=== PATIENT | male | born 1965 | race Caucasian/White ===

== ENCOUNTER 2023-11-14 16:35 | Outpatient (CLI) | payer OTHER, SELFPAY | END 2023-11-14 16:36 | disposition home or self-care (01) | LOC: AMB 11-16 12:44 | PROVIDERS: Visit Provider Student in an Organized Health Care Education/Training Program | DX: R06.09 Other forms of dyspnea (principal) | CPT/HCPCS: A0425; A0427 ==

== ENCOUNTER 2023-11-14 16:59 | Emergency (ER) | payer OTHER, SELFPAY ==
[2023-11-14] VITALS (34 sets, daily range): BP systolic 107–137; BP diastolic 71–87; PULSE 104–119; RESP 12–29; TEMP 37.1; O2SAT 92–97; BMI 28.9
--- NOTE | 2023-11-14 17:33 | ED_ITS ---
HPI - General Adult General Chief complaint: Cough Stated complaint: fever Time Seen by Provider: 11/14/23 17:00 History of Present Illness HPI narrative: Patient reports generalized body aches, cough and congestion for a couple of weeks. Went into urgent care today and also endorses right chest pain that is worse with coughing. 58-year-old man presenting to the emergency department after being initially evaluated in urgent care who called for 2nd opinion on imaging and care plan. Recommendations were to be seen in the emergency department for further evaluation at that point. He has had a couple of weeks of coughing congestion generalized achy. Is experiencing night sweats. Sounds like it might be experiencing increased orthopnea. Having some right-sided chest pain, pleuritic. He does smoke. Denies drinking alcohol just admits to excessive soda ingestion. Works hauling tires. No particular sick contacts. Figures he is due for a physical but unsure where he receives his regular primary care. Somewhere in [place]. Later review of records notes a history of pulmonary embolus and anticoagulation with Coumadin approximately 10 years ago Related Data Home Medications Medication Instructions Recorded Confirmed No Known Home Medications 11/14/23 11/14/23 Allergies Allergy/AdvReac Type Severity Reaction Status Date / Time No Known Drug Allergies Allergy Verified 11/14/23 18:08 Review of Systems Status of ROS: Reports: 6 or more systems reviewed and unremarkable except as noted in History and below Exam Narrative: Exam Narrative: Pleasant. Of good energy. Skin is warm and dry. He has strong rough hands. Oropharynx is a little sticky. Cranial nerves 2-12 look to be intact. Lungs with diminished breath sounds in the right upper chest. No supraclavicular crepitus. No cervical lymphadenopathy. Does cough once during effort here. Heart is tachycardic in a regular rhythm. Abdomen is soft and nontender. Extremities well perfused. Left lower leg with 1+ pitting edema. Less so on the right. Negative Homans. Const: Vital Signs, click to edit/add: Vital Signs - 24 hr 11/14/23 17:09 11/14/23 17:11 11/14/23 17:15 Temperature 98.8 F Pulse Rate 117 H 115 H Pulse Rate [Pulse Oximeter] 116 H Respiratory Rate 24 Blood Pressure Blood Pressure [Ri ght Upper Arm] 137/87 Pulse Oximetry 93 93 92 Oxygen Delivery Me thod Room Air 02/10/24 17:20 11/14/23 17:30 11/14/23 17:31 Temperature Pulse Rate 114 H 116 H Pulse Rate [Pulse Oximeter] Respiratory Rate 16 Blood Pressure 126/77 Blood Pressure [Ri ght Upper Arm] Pulse Oximetry 94 93 92 Oxygen Delivery Me thod Room Air 11/14/23 17:34 11/14/23 17:40 11/14/23 17:45 Temperature Pulse Rate 114 H Pulse Rate [Pulse Oximeter] Respiratory Rate Blood Pressure Blood Pressure [Ri ght Upper Arm] Pulse Oximetry 92 93 94 Oxygen Delivery Me thod 11/14/23 17:50 11/14/23 18:05 11/14/23 18:07 Temperature Pulse Rate 119 H 114 H Pulse Rate [Pulse Oximeter] Respiratory Rate Blood Pressure 127/78 Blood Pressure [Ri ght Upper Arm] Pulse Oximetry 94 93 93 Oxygen Delivery Me thod 11/14/23 18:10 11/14/23 18:15 11/14/23 18:21 Temperature Pulse Rate 114 H Pulse Rate [Pulse Oximeter] Respiratory Rate Blood Pressure Blood Pressure [Ri ght Upper Arm] Pulse Oximetry 92 93 94 Oxygen Delivery Me thod 11/14/23 18:30 11/14/23 18:40 11/14/23 18:45 Temperature Pulse Rate 113 H 114 H Pulse Rate [Pulse Oximeter] Respiratory Rate Blood Pressure Blood Pressure [Ri ght Upper Arm] Pulse Oximetry 93 93 94 Oxygen Delivery Me thod 11/14/23 18:50 11/14/23 19:00 11/14/23 19:02 Temperature Pulse Rate 112 H 114 H Pulse Rate [Pulse Oximeter] Respiratory Rate Blood Pressure 110/71 Blood Pressure [Ri ght Upper Arm] Pulse Oximetry 93 93 93 Oxygen Delivery Me thod 11/14/23 19:10 11/14/23 19:20 11/14/23 20:41 Temperature Pulse Rate Pulse Rate [Pulse Oximeter] Respiratory Rate Blood Pressure Blood Pressure [Ri ght Upper Arm] Pulse Oximetry 93 93 93 Oxygen Delivery Me thod Documenting provider has reviewed patient's vital signs: yes Course Vital Signs Vital signs: Initial Vital Signs Respiratory Effort Normal 11/14/23 17:08 Respiratory Depth Normal 11/14/23 17:08 Respiratory Pattern Normal 11/14/23 17:08 Vital Signs Temperature 98.8 F 11/14/23 17:09 Pulse Rate 116 H 11/14/23 17:09 Respiratory Rate 24 11/14/23 17:09 Blood Pressure 137/87 11/14/23 17:09 Pulse Oximetry 93 11/14/23 17:09 Oxygen Delivery Method Room Air 11/14/23 17:09 Temperature 98.8 F 11/14/23 17:09 Pulse Rate 114 H 11/14/23 19:02 Respiratory Rate 16 11/14/23 17:31 Blood Pressure 110/71 11/14/23 19:02 Pulse Oximetry 93 11/14/23 20:41 Oxygen Delivery Method Room Air 11/14/23 17:31 Medications Administered Medications: Discontinued Medications Generic Name Dose Route Start Last Admin Trade Name Freq PRN Reason Stop Dose Admin Sodium Chloride 1,000 mls @ 1,000 mls/hr 11/14/23 19:06 11/14/23 20:44 0.9 % Sodium Chloride 1000 Ml IV 11/14/23 20:05 Infused .Q1H ONE Infusion Piperacillin Sod/Tazobactam 100 mls @ 200 mls/hr 11/14/23 19:06 11/14/23 20:08 Sod 4.5 gm/ Sodium Chloride IVPB 11/14/23 19:07 Infused ONCE ONE Infusion Medical Decision Making MDM Narrative Medical decision making narrative: Per call by urgent care am reviewing initial two-view chest. Does have waited out right side chest with what looks to be some marked atelectatic changes on the right. Almost seems as though without lung markings in the apex. Looks to be effusion but not layering out the lower chest. White count has been collected not resulted from urgent care is little over 30,000. Mildly hypoxic Would presume pneumonia at this point with associated effusion but I think given degree of effusion and history of smoking would be a good idea to CTA chest. Will collect other labs. Antibiotics. Would anticipate admission. CT chest reviewed by me shows multiloculated nature to this effusion on the right. Radiology over-read as below Final Report: INDICATION: Right-sided pleural effusion, leukocytosis. TECHNIQUE: CT chest was acquired with 75 cc Isovue 370 IV contrast. COMPARISON: Radiograph, November 14, 2023. FINDINGS: Lungs and pleura: Large multiloculated right pleural effusion with compressive atelectasis. Some pleural hyperenhancement. No left lung pleural effusion or consolidation. No pneumothoraces. Heart and vasculature: Heart size is normal. Thoracic aorta and pulmonary artery are normal in caliber. Lymph nodes/mediastinum: Focal patulous fluid-filled proximal esophagus. Multiple mildly enlarged mediastinal lymph nodes. Chest wall: No masses. Upper abdomen: Normal. Bones: Unremarkable for age. IMPRESSION: Large multiloculated right pleural effusion with compressive atelectasis. Some pleural enhancement which likely suggests early empyema formation. Multiple mildly enlarged mediastinal lymph nodes, possibly reactive. Focal patulous fluid-filled proximal esophagus, possibly diverticulum. This could predispose the patient to aspiration. Further labs with mildly elevated bilirubin unclear etiology. Mildly elevated PT and PTT. Elevated bili also expressed in the urine. Unable to do testing for strep pneumo or Legionella, out of reagent, though this does not seem like a typical pneumonia for this. Anticipating admission to our facility spoke with hospitalist but also with General surgery. Concern for more involved drainage of this multiloculated effusion and potential need to address possible etiology from aspiration event. I have called to [facility] ultimately speaking with pulmonology and anticipating conversation with hospitalist at [facility] for admission and next step in cares. Meanwhile have given a dose of Zosyn. No MRSA history noted. Remains mildly hypoxic and mildly tachycardic. Otherwise WNL. Blood cultures were obtained on initial lab draws. 2041 -- spoke with hospitalist at [facility] Dr. Jesus who is accepting. Pending bed confirmation and transport. Lab Data Lab results reviewed: Yes I reviewed the patient's lab results Labs: Lab Results 11/14/23 11/14/23 11/14/23 Range/Units 17:40 17:45 18:00 INR 1.30 H (0.91-1.10) APTT 42 H (23-33) Seconds Sodium 130 L (135-149) mmol/L Potassium 3.8 (3.6-5.1) mmol/L Chloride 98 (96-114) mmol/L Carbon Dioxide 21 (20-32) mmol/L Anion Gap 11 (7-15) mEq/L BUN 17 (7-30) mg/dL Creatinine 1.1 (0.5-1.5) mg/dL Estimated Creat Clear 84.07 Estimated GFR 77 ml/min Glucose 156 H (60-115) mg/dL Lactate 1.3 (0.5-1.9) mmol/L Calcium 8.5 (8.4-10.6) mg/dL Total Bilirubin 2.1 H (0.1-1.5) mg/dL Direct Bilirubin 1.0 H (0.0-0.5) mg/dL AST 33 (12-35) U/L ALT 31 (4-50) U/L Alkaline Phosphatase 123 (40-150) U/L C-Reactive Protein 25.9 H (0.5-1.0) mg/dL NT-Pro-B Natriuret Pep 297 pg/mL Total Protein 7.4 (6.0-8.3) g/dL Albumin 3.5 (3.3-5.0) g/dL Urine Color [place] A (Yellow) Urine Appearance Slightly Cloudy A (Clear) Urine pH 6.0 (5.0-8.5) Ur Specific [place] 1.025 (1.000-1.030) Urine Protein 2+ A (Negative) Urine Glucose (UA) Trace A (Negative) Urine Ketones Trace A (Negative) Urine Blood Trace-intact A (Negative) Urine Nitrite Positive A (Negative) Urine Bilirubin 2+ A (Negative) Urine Urobilinogen >=8.0 A (0.2-1.0) Ur Leukocyte Esterase Negative (Negative) Urine RBC 0-2 (0-2) Urine WBC 0-2 (0-5) Ur Squamous Epith Cells None (None-Few) Amorphous Sediment Few A (None) Urine Bacteria Few A (None) Urine L. pneumophilia Ag Cancelled Urine Strep pneumoniae Ag Cancelled Ethyl Alcohol < 0.01 L (0.01-0.03) % SARS-CoV-2 (PCR) Negative SARS-CoV-2 (Negative) Influenza Type A (PCR) Negative PCR FLU A (Negative) Influenza Type B (PCR) Negative PCR FLU B (Negative) RSV (PCR) Negative PCR RSV (Negative) Lab Acknowledgement 11/14/23 Range/Units 19:01 INR (0.91-1.10) APTT (23-33) Seconds Sodium (135-149) mmol/L Potassium (3.6-5.1) mmol/L Chloride (96-114) mmol/L Carbon Dioxide (20-32) mmol/L Anion Gap (7-15) mEq/L BUN (7-30) mg/dL Creatinine (0.5-1.5) mg/dL Estimated Creat Clear Estimated GFR ml/min Glucose (60-115) mg/dL Lactate (0.5-1.9) mmol/L Calcium (8.4-10.6) mg/dL Total Bilirubin (0.1-1.5) mg/dL Direct Bilirubin (0.0-0.5) mg/dL AST (12-35) U/L ALT (4-50) U/L Alkaline Phosphatase (40-150) U/L C-Reactive Protein (0.5-1.0) mg/dL NT-Pro-B Natriuret Pep pg/mL Total Protein (6.0-8.3) g/dL Albumin (3.3-5.0) g/dL Urine Color (Yellow) Urine Appearance (Clear) Urine pH (5.0-8.5) Ur Specific [place] (1.000-1.030) Urine Protein (Negative) Urine Glucose (UA) (Negative) Urine Ketones (Negative) Urine Blood (Negative) Urine Nitrite (Negative) Urine Bilirubin (Negative) Urine Urobilinogen (0.2-1.0) Ur Leukocyte Esterase (Negative) Urine RBC (0-2) Urine WBC (0-5) Ur Squamous Epith Cells (None-Few) Amorphous Sediment (None) Urine Bacteria (None) Urine L. pneumophilia Ag Urine Strep pneumoniae Ag Ethyl Alcohol (0.01-0.03) % SARS-CoV-2 (PCR) (Negative) Influenza Type A (PCR) (Negative) Influenza Type B (PCR) (Negative) RSV (PCR) (Negative) Lab Acknowledgement Test Added ECG Data Attestation: I personally reviewed and interpreted this ECG as follows: (Sinus tachycardia 116) Discharge Plan Discharge Clinical Impression: Pleural effusion, Pneumonia Patient Disposition: Xfer Other Discharge Location: [facility] Condition: Stable Prescriptions: No Action No Known Home Medications Stand Alone Forms: MyHealth Info Instructions
--- NOTE | 2023-11-14 17:35 | CRLHL7_ITS ---
For Patients: As a result of the Century Cures Act, medical imaging exams and procedure reports are released immediately into your electronic medical record. You may view this report before your referring provider. If you have questions, please contact your health care provider. INDICATION: Right-sided pleural effusion, leukocytosis. TECHNIQUE: CT chest was acquired with 75 cc Isovue 370 IV contrast. COMPARISON: Radiograph, November 14, 2023. FINDINGS: Lungs and pleura: Large multiloculated right pleural effusion with compressive atelectasis. Some pleural hyperenhancement. No left lung pleural effusion or consolidation. No pneumothoraces. Heart and vasculature: Heart size is normal. Thoracic aorta and pulmonary artery are normal in caliber. Lymph nodes/mediastinum: Focal patulous fluid-filled proximal esophagus. Multiple mildly enlarged mediastinal lymph nodes. Chest wall: No masses. Upper abdomen: Normal. Bones: Unremarkable for age. IMPRESSION: Large multiloculated right pleural effusion with compressive atelectasis. Some pleural enhancement which likely suggests early empyema formation. Multiple mildly enlarged mediastinal lymph nodes, possibly reactive. Focal patulous fluid-filled proximal esophagus, possibly diverticulum. This could predispose the patient to aspiration. Please note that all CT scans at this facility use dose modulation, iterative reconstruction, and/or weight-based dosing when appropriate to reduce radiation dose to as low as reasonably achievable. Dictated by Ishaan Goldman MD @ 11/14/2023 6:54:17 PM (Electronically Signed)
[2023-11-14 17:46] LABS: Lactate* 1.3 mmol/L (0.5-1.9)
[2023-11-14 18:02] LABS: Chloride* 98 mmol/L (96-114); Potassium* 3.8 mmol/L (3.6-5.1); Sodium* 130 mmol/L (135-149)
[2023-11-14 18:03] LABS: Albumin* 3.5 g/dL (3.3-5.0)
[2023-11-14 18:04] LABS: Creatinine* 1.1 mg/dL (0.5-1.5); Est. Creatinine Clearance* 84.07; Estimated Glomerular Filt Rate 77 ml/min
[2023-11-14 18:05] LABS: Anion Gap 11 mEq/L (7-15); Blood Urea Nitrogen* 17 mg/dL (7-30); Carbon Dioxide* 21 mmol/L (20-32); Glucose* 156 mg/dL (60-115)
[2023-11-14 18:06] LABS: Alanine Aminotransferase* 31 U/L (4-50); Alkaline Phosphatase* 123 U/L (40-150); Aspartate Amino Transferase* 33 U/L (12-35); Bilirubin Total* 2.1 mg/dL (0.1-1.5); Calcium* 8.5 mg/dL (8.4-10.6); Total Protein* 7.4 g/dL (6.0-8.3)
[2023-11-14 18:13] LABS: Appearance Urine Slightly Cloudy (Clear); Bilirubin Urine 2+ (Negative); Blood Urine Trace-intact (Negative); Color Urine Orange (Yellow); Glucose Urine Trace (Negative); Ketones Urine Trace (Negative); Leukocyte Esterase Urine Negative (Negative); Nitrite Urine Positive (Negative); Protein Urine 2+ (Negative); Specific Gravity Urine 1.025 (1.000-1.030); Urobilinogen Urine >=8.0 (0.2-1.0)
[2023-11-14 18:17] LABS: Ethanol* < 0.01 % (0.01-0.03)
[2023-11-14 18:18] LABS: NT Pro B Type NatriureticPept* 297 pg/mL
[2023-11-14 18:19] LABS: C Reactive Protein* 25.9 mg/dL (0.5-1.0)
[2023-11-14 18:25] LABS: Bacteria Urine Few; RBC Urine 0-2 (0-2); WBC Urine 0-2 (0-5)
[2023-11-14 18:26] LABS: Amorphous Sediment Urine Few
[2023-11-14 18:28] LABS: PCR FLU A Negative PCR FLU A (Negative); PCR FLU B Negative PCR FLU B (Negative); PCR RSV Negative PCR RSV (Negative); SARS PCR* Negative SARS-CoV-2 (Negative)
[2023-11-14 19:17] LABS: Prothrombin Time 17.1 Seconds
[2023-11-14 19:18] LABS: Partial Thromboplastin Time* 42 Seconds (23-33)
[2023-11-14] MEDS: 0.9 % SODIUM CHLORIDE 1000 ml 1,000 ML IV (19:36)
[2023-11-14] MEDS: PIPERACILLIN/TAZOBACTAM 4.5 GM in 0.9 % SODIUM CHLORIDE Mini-bag 100 ML IVPB (19:36)
--- NOTE | 2023-11-14 19:38 | PM.EN ---
Chart Event Note Chart Event Note: Imaging and history reviewed. Evidence of multiple loculations, thickened fluid and enhancing pleural rind. Findings consistent with empyema. This is likely secondary to ongoing aspiration from [place] Diverticulum. Patient will need drainage with high likelihood for TPA or surgical drainage. Recommend further evaluation by thoracic surgery.
--- NOTE | 2023-11-14 20:37 | ED.NURSE ---
Patient placement from [facility] called and stated that patient has been accepted at [facility]. Will call back with bed placement.
--- NOTE | 2023-11-14 22:57 | ED.NURSE ---
Patient accepted at [facility]. Patient will e going to bed [id number].
--- NOTE | 2023-11-14 22:57 | ED.NURSE ---
Patient accepted at [facility]. Patient will be going to [id number]. Call report to [phone]
--- NOTE | 2023-11-14 23:46 | ED.NURSE ---
patient report given to Cally GUEVARA at [facility];[phone]. Patient to be transferred to [facility].
--- NOTE | 2023-11-14 23:51 | ED.NURSE ---
dispatch called, patient transport arranged. Patient transport should occur ~0130
[2023-11-15 00:30] VITALS: BP 124/79; PULSE 105; RESP 24; O2SAT 95
[2023-11-15 01:00] VITALS: BP 123/75; PULSE 103; RESP 24
[2023-11-15 01:13] VITALS: PULSE 101; RESP 15
--- NOTE | 2023-11-15 01:15 | ED.NURSE ---
patient report given to EMS. Patient transferring to [facility]. Belongings sent with patient
[2023-11-15] MEDS: PIPERACILLIN/TAZOBACTAM 3.375 GM in 0.9 % SODIUM CHLORIDE Mini-bag 100 ML IVPB (01:20)
== END 2023-11-15 01:25 | disposition other institution (70) ==
PROVIDERS: Emergency Provider Family Medicine
DX: J90 Pleural effusion, not elsewhere classified (principal); J18.9 Pneumonia, unspecified organism
CPT/HCPCS: 36415; 71260; 80048; 80076; 81001; 82077; 83605; 83880; 85610; 85730; 86140; 87040; 87086; 87449; 87631; 87899; 93005; 94761; 96365; 96366; 99284; 99285; J2543; J7030; Q9967

== ENCOUNTER 2023-11-15 01:15 | Outpatient (CLI) | payer OTHER, SELFPAY | END 2023-11-15 01:16 | disposition home or self-care (01) | LOC: AMB 11-17 11:55 | PROVIDERS: Visit Provider Family Medicine | DX: J90 Pleural effusion, not elsewhere classified (principal); D72.829 Elevated white blood cell count, unspecified; R06.09 Other forms of dyspnea | CPT/HCPCS: A0425; A0434 ==